=== PATIENT | female | born 2005 | race Caucasian/White ===

== ENCOUNTER 2025-06-10 09:30 | Outpatient (RCR) | payer OTHER, SELFPAY ==
--- NOTE | 2025-05-11 10:41 | HP.PTEVAL ---
Patient's Visit Information Visit Information Visit Information: OLGA COFFEY is a 19 year old F referred to Physical Therapy by JA Alvarez with a diagnosis of Hypermobility. Date of Evaluation: 05/11/25 Physical Therapist: Christina Khan DPT Visit Plan Frequency: 1x/Week Duration: 4 Weeks Plan: Focus on HEP for scapular strength/stabilization and core strength/stabilization program for hypermobility. IE Education: Upper Extremity -Scapular Stabilization-Strengthen Below 90 degrees-Thumbs Up Lower Extremity -Closed Chain-Hip Strength/Posterior Chain POSTURE Subjective Subjective: Patient reports that she has hypermobility- she popped her arm out of the socket pretty severely- she is a [employer] student- and they were practicing and her left shoulder popped out- it was about 3-4 weeks ago- no pain saw it come out went back in on its own. She has issues with all joints. Notices it a lot when she is working out. She has a lot of noises when she is moving in both UE and LE. If she does have pain its momentary but it goes away quickly and its a 2/10 and she is able to walk it off quickly. She is thinking about getting genetic testing- she has a twin sister who also has hyper mobility issues. Current workout- she is going 2x a week- was going 3x- push/pull legs- lower weight- higher reps-does not do leg press- squats instead- biceps, pecs, triceps- dumbells- and machines. She is looking to come to PT to be more aware of what her joints can and can't do. Looking at more of a joint based proprioception program not strength. Objective Objective: Posture: fair throughout tx session Gait: no deviation noted ROM: hypermobile throughout UE and LE Observation: high Beighten Index Strength: scap: fair minus, Core: fair minus, Shoulder: 4/5 throughout, Elbow: 4+/5, Wrist: 4+/5 Salvager Helper: good, Hip: Left: Flexion: 4/5, Abd: 4/5, Add: 4+/5, Extn: 4/5, IR: 4/5, ER: 4-/5, Knee: 4+/5, Ankle: 5/5 Right: Flexion: 4+/5, Abd: 4/5, Add: 4+/5, Extn: 4+/5, IR: 4/5, ER: 01/10, Knee: /5, Ankle: /5 SLS: 30 sec without LOB- mild increase in sway HR/TR: able without UE A- good ROM Flex: HS: no restriction, Gastroc: no restriction, USHA: no restriction Balance/Special Test Scores Lower Extremity Functional Score: 64 Goals Goal 1:: Patient will be I with HEP and progression Goal Time Frame: 4-6 Weeks Rehabilitation Potential Physical Therapy Diagnosis: Patient presents with hypermobility- she has decreased LE, UE core and scapular strength/stabilization. Rehabilitation Potential: Good Anticipated Interventions Therapeutic Exercise to Include: Strength training, Endurance training, Balance training, Coordination, Agility training, Body mechanics, Postural training, Neuromotor development, Dynamic Lumbar Stabilization and Scapular Strength/Stabilization For the Purpose of:: To improve muscle performance and motor function Text: Thank you for the opportunity to evaluate your patient. For Medicare and Medicare HMO plans, please review the plan of care and approve it. It will need to be FAXED BACK to us at [phone] for Medicare purposes. For Medicare only, by signing this I certify the plan of care. Please let me know if there are questions or concerns regarding this plan of care. Physician Signature: Date:
--- NOTE | 2025-06-10 10:26 | HP.PTDCSUM ---
Discharge Summary D/C summary: It has been my pleasure to treat OLGA COFFEY referred by Qi Cruz NP-C, with the diagnosis of Hypermobility for a total of 6 visit(s). Discharge Date: Please see the following information for a summary of their discharge status. Subjective Subjective: I feel like I am ready to be done Objective Objective/Function: Pt is now I with HEP. Pt has full L shoulder ROM and strength Rx goals achieved. Goals Goal 1:: Patient will be I with HEP and progression Goal Progress: Goal Met Plan Plan: discharge D/C Information d/c sentence: If there are questions or concerns regarding this patient's physical therapy, please feel free to call me at [phone]. Thank you for the referral of this patient. Sincerely, Thomas Johnson, PT, ATC Balance/Gait/Functional tests Balance/Special Test Scores Lower Extremity Functional Score: 75
== END 2025-06-10 12:15 | disposition home or self-care (01) ==
LOC: PT 09:30
PROVIDERS: PCP Nurse Practitioner Family; Referring Provider Registered Nurse; Visit Provider Registered Nurse
DX: M24.9 Joint derangement, unspecified (principal)
CPT/HCPCS: 97110; 97162; 97530